=== PATIENT | female | born 1990 | race Caucasian/White ===

== ENCOUNTER 2017-10-30 10:49 | Emergency (ER) | payer MEDICAID ==
[~2017-10-30] VITALS: Ht 172.7 cm; Wt 90.7 kg
[2017-10-30 10:54] VITALS: Ht 172.7 cm; Wt 90.7 kg
[2017-10-30] MEDS ORDERED: HYDROCODONE/APAP (10/325) TAB PO ONE (12:30)
[2017-10-30 12:44] LABS: URINE BLOOD (Dip) POC Negative (NEGATIVE)
[2017-10-30] MEDS ORDERED: MED4DP PO (13:01)
[2017-10-30] MEDS ORDERED: HYDR-906 PO (13:02)
[2017-10-30] MEDS ORDERED: NITR-58 PO (13:02)
--- NOTE | 2017-10-30 13:08 | ERD ---
ER Documentation Chief Complaint Chief Complaint Complains of back pain radiating down the leg HPI Patient is a 27-year-old female who presents to the ED for concerns of left- sided back pain radiating down her left leg 1.5 weeks. Patient states she saw her primary care physician approximately 1 week ago and she was given a unknown IM injection. Patient states that she had intermittent relief of her pain however she felt nauseous as well as vomited after this medication. Patient denies any fevers, chills, chest pain, shortness of breath, trauma or falls. Patient denies any saddle anesthesia, urinary incontinence, stool incontinence. Patient denies any dysuria, frequency, urgency or hematuria. Patient denies any recent heavy lifting. Patient states she is limping secondary to the pain. She reports taking ibuprofen for her symptoms with minimal relief. ROS All systems reviewed and are negative except as per history of present illness. Medications Home Meds Active Scripts Hydrocodone/Acetaminophen ([place] 5-325 Tablet) 1 Each Tablet, 1 TAB PO Q6H Y for PAIN, #7 TAB Prov:EAMON HURT PA-C 10/30/17 Nitrofurantoin Monohyd Macrocr* (Macrobid*) 100 Mg Capsr, 100 MG PO BID for 5 Days, #10 CAP Prov:EAMON HURT PA-C 10/30/17 Methylprednisolone* (Medrol* DOSE PACK) 4 Mg/Dose-Pack Tab.ds.pk, 4 MG PO . DIRECTED, #1 PACKET Prov:EAMON HURT PA-C 10/30/17 Allergies Allergies: Coded Allergies: No Known Allergy (Verified , 10/19/07) PMhx/Soc Medical and Surgical Hx: pt denies Medical Hx, pt denies Surgical Hx History of Surgery: No Anesthesia Reaction: No Hx Neurological Disorder: No Hx Respiratory Disorders: No Hx Cardiac Disorders: No Hx Psychiatric Problems: No Hx Miscellaneous Medical Probl: No Hx Alcohol Use: No Hx Substance Use: No Hx Tobacco Use: No Smoking Status: Never smoker Physical Exam Vitals Vital Signs Date Time Temp Pulse Resp B/P Pulse Ox O2 Delivery O2 Flow Rate FiO2 10/30/17 10:54 98.9 59 20 108/76 98 Physical Exam GENERAL: Well-developed, well-nourished female. Appears in no acute distress. HEAD: Normocephalic, atraumatic. EYES: Pupils are equally reactive bilaterally. EOMs grossly intact. No conjunctival erythema. ENT: Moist mucous membranes. No uvula deviation. No kissing tonsils. NECK: Supple. No meningismus. Normal range of motion of the neck. LUNG: Clear to auscultation bilaterally. No rhonchi, wheezing, rales or coarse breath sounds. HEART: Regular rate and rhythm. No murmurs, rubs or gallops. BACK: No midline tenderness. Tender to palpation over the left lumbar paraspinal muscles and left gluteus muscles. Positive left-sided straight leg raise. EXTREMITIES: Equal pulses bilaterally. No peripheral clubbing, cyanosis or edema. No unilateral leg swelling. NEUROLOGIC: Alert and oriented. Moving all four extremities without any difficulty. Normal speech. Steady gait. SKIN: Normal color. Warm and dry. No rashes or lesions. Results 24 hrs Laboratory Tests Test 10/30/17 12:44 Bedside Urine pH (LAB) 7.0 Bedside Urine Protein (LAB) Negative Bedside Urine Glucose (UA) Negative Bedside Urine Ketones (LAB) Negative Bedside Urine Blood Negative Bedside Urine Nitrite (LAB) Negative Bedside Urine Leukocyte Esterase (L 1+ Current Medications Medications (Trade) Dose Ordered Sig/Jhonny Route PRN Reason Start Time Stop Time Status Last Admin Dose Admin Acetaminophen/ Hydrocodone Bitart ([place] ()) 1 tab ONCE ONCE PO 10/30/17 12:30 10/30/17 12:31 DC 10/30/17 12:42 Procedures/MDM ED COURSE: The patient was stable throughout ED course. I kept the patient and/or family informed of laboratory and diagnostic imaging results throughout the ED course. MEDICATIONS GIVEN: [place] Patient tolerated medication well with no adverse reactions. MEDICAL DECISION MAKING: This is a 27-year-old female presents ED for concerns of left-sided back pain radiating down her left leg for 1.5 weeks now. Patient denies any falls or trauma. Vital signs were reviewed. Patient was afebrile. Patient denied any saddle anesthesia, urinary incontinence, bowel incontinence, night pain. Patient denies any urinary symptoms. Given the patient denies any falls or trauma, there is no indication for x-ray imaging at this time. Patient may need an MRI and an outpatient basis pain persists. Urine dip did show 1+ leukocyte esterase. I will treat the patient with a course of antibiotics at this time. Given these findings, the patients presentation is most consistent with sciatic pain and UTI. I have a much lower clinical concern for cauda equine syndrome, spinal fractures, epidural abscess, spinal metastases, ruptured or leaking AA, DJD, muscle spasm, pyelonephritis or nephrolithiasis. PRESCRIPTIONS: [place], Medrol dosepak, Macrobid Patient was advised to continue ibuprofen as needed. DISCHARGE: At this time, patient is stable for discharge and outpatient management. RICE therapy and ROM exercises were advised to avoid stiffness. Patient may need an MRI and an outpatient basis. Patient may also benefit from physical therapy. Patient advised to follow-up with primary care physician for referral. I have instructed the patient to follow-up with his/her primary care physician in 1-2 days. I have discussed with the patient the possibility of needing to see an excel specialist for further workup and imaging if the pain persists. I have instructed the patient to promptly return to the ER for any new or worsening symptoms including increased pain, swelling, warmth, urinary incontinence, stool incontinence, weakness or numbness. The patient and/or family expressed understanding of and agreement with this plan. All questions were answered. Home care instructions were provided. Disclaimer: Inadvertent spelling and grammatical errors are likely due to EHR/ dictation software use and do not reflect on the overall quality of patient care. Also, please note that the electronic time recorded on this note does not necessarily reflect the actual time of the patient encounter. Departure Diagnosis: Primary Impression: UTI (urinary tract infection) Urinary tract infection type: site unspecified Hematuria presence: without hematuria Qualified Code: N39.0 - Urinary tract infection without hematuria, site unspecified Additional Impression: Sciatic leg pain Condition: Stable Patient Instructions: Understanding Urinary Tract Infections (UTIs), Understanding Sciatica Referrals: [facility] YOU HAVE RECEIVED A MEDICAL SCREENING EXAM AND THE RESULTS INDICATE THAT YOU DO NOT HAVE A CONDITION THAT REQUIRES URGENT TREATMENT IN THE EMERGENCY DEPARTMENT. FURTHER EVALUATION AND TREATMENT OF YOUR CONDITION CAN WAIT UNTIL YOU ARE SEEN IN YOUR DOCTORS OFFICE WITHIN THE NEXT 1-2 DAYS. IT IS YOUR RESPONSIBILITY TO MAKE AN APPOINTMENT FOR FOLOW-UP CARE. IF YOU HAVE A PRIMARY DOCTOR --you should call your primary doctor and schedule an appointment IF YOU DO NOT HAVE A PRIMARY DOCTOR YOU CAN CALL OUR PHYSICIAN REFERRAL HOTLINE AT IF YOU CAN NOT AFFORD TO SEE A PHYSICIAN YOU CAN CHOSE FROM THE FOLLOWING COMMUNITY CLINICS [facility] [address] [facility] [address] [facility] [address] [facility] [address] [facility] [address] [facility] [address] [facility] [address] [facility] YOU HAVE RECEIVED A MEDICAL SCREENING EXAM AND THE RESULTS INDICATE THAT YOU DO NOT HAVE A CONDITION THAT REQUIRES URGENT TREATMENT IN THE EMERGENCY DEPARTMENT. FURTHER EVALUATION AND TREATMENT OF YOUR CONDITION CAN WAIT UNTIL YOU ARE SEEN IN YOUR DOCTORS OFFICE WITHIN THE NEXT 1-2 DAYS. IT IS YOUR RESPONSIBILITY TO MAKE AN APPOINTMENT FOR FOLOW-UP CARE. IF YOU HAVE A PRIMARY DOCTOR --you should call your primary doctor and schedule and appointment IF YOU DO NOT HAVE A PRIMARY DOCTOR YOU CAN CALL OUR PHYSICIAN REFERRAL HOTLINE AT . IF YOU CAN NOT AFFORD TO SEE A PHYSICIAN YOU CAN CHOSE FROM THE FOLLOWING COUNTS INCLUDE 234 BEDS AT THE [facility] INSTITUTIONS: [facility] [address] [place] [address] [facility] [address] [place] [address] [facility] [address] [place] [address] Additional Instructions: You may need MRI on outpatient basis. Talk to your doctor about physical therapy. Continue Ibuprofen as needed. Take [place] only when at home, do not take when driving or operating any machinery. Call your primary care doctor TOMORROW for an appointment during the next 1-2 days.See the doctor sooner or return here if your condition worsens before your appointment time. EAMON HURT PA-C Oct 30, 2017 13:08
== END 2017-10-30 13:21 | disposition home or self-care (01) ==
LOC: FTE 10:49
DX: N39.0 Urinary tract infection, site not specified (principal); M54.42 Lumbago with sciatica, left side
CPT/HCPCS: 81003; Z7502; Z7610; 99284